=== PATIENT | female | born 1995 | race Caucasian/White ===

== ENCOUNTER 2017-11-29 15:47 | Emergency (ER) | payer MEDICAID, SELFPAY ==
[2017-11-29 16:01] VITALS: BP 142/84; PULSE 98; RESP 20; TEMP 36.8; O2SAT 94; BMI 27.4
--- NOTE | 2017-11-29 16:12 | HMH.EDUTC ---
[facility] [place] Disposition Clinical Impression: URI (upper respiratory infection) Qualifiers: URI type: unspecified URI Qualified Code(s): J06.9 - Acute upper respiratory infection, unspecified Disposition: Home, Self-Care Condition on Discharge: Good Instructions: DI for Cough -- Adult, Sinusitis, Sore Throat Additional Instructions: * Monitor Temp. Tylenol and/or Ibuprofen as needed. ER if fever is no less than 101 despite alternating Tylenol and Ibuprofen * Encourage fluids, water, Gatorade, powerade, pedialyte if /toddler/or child * Warm salt water gargles for throat irritation *Warm fluids *Sore throat lozenges *Sleep elevated *humidifier or vaporizer Lots of rest Increase fluids, water, Gatorade, powerade *Flonase 2 sprays each nostril daily but may take 2-3 days to notice improvement with it *Bromfed may cause drowsiness. Know how it effect you or your child. Before driving, caring for small children or sending your child to school *Your throat swab was sent to lab for culture. Those results area typically sent to your primary care physician. Be sure to follow up in 2-3 days if no improvement so they can review those results and treat if necessary If you dont have primary care I recommend you get one, but in the mean time you will have to return to a walk in clinic Follow up IMMEDIATELY for new or worsening of symptoms OR no noticeable improvement over the next 48-72 hours. 911 immediately for any life threatening symptoms such as chest pain or difficulty breathing Prescriptions: Brompheniramine/Pseudoephed/Dm [Bromfed DM Cough Syrup 5mL] 10 ml PO Q4HP PRN #350 ml PRN Reason: Cough Albuterol Sulfate [Albuterol HFA Inhaler] 2 puffs IH Q6HP PRN #1 inh PRN Reason: Shortness Of Breath Or Wheezing Azithromycin [Z-Clark 250mg Tab] 250 mg PO UD DOSE PK #6 tab Fluticasone Propionate [Flonase 50mcg nasal spray 16gm] 2 spr NS DAILY #1 bottle predniSONE [Prednisone 20mg Tab] 20 mg PO BID #10 tab Referrals: [place] MD [Primary Care Provider] - Time of Disposition: 16:28 Medical Decision Making - Medical Records Medical records reviewed: Yes: I reviewed the patient's medical records. - Calderon Inquiry Pt receiving controlled substance: No Calderon was queried for this patient: No Vital Signs: 11/29/17 16:01 Temperature 98.2 F Temperature Source Temporal Artery Scan Pulse Rate [Right Brachial] 98 H Respiratory Rate 20 Blood Pressure [Right Arm] 142/84 Blood Pressure Mean [Right Arm] 103 Blood Pressure Source [Right Arm] Automatic Cuff Blood Pressure Position [Right Arm] Sitting 02 Sat by Pulse Oximetry 94 L Oxygen Delivery Method Room Air [facility] HPI - General Stated complaint: cough,stuffy nose Time Seen by Provider: 11/29/17 16:15 Mode of Arrival: Family Vehicle Source of Information: Patient Limitations: No Limitations Description of Symptoms (Recalled from Triage Doc. by RN): C/O SORE THROAT,COUGH AND SINUS DRAINAGE X 3 DAYS HEENT Symptoms (Recalled from RN notes): Yes Resp Symptoms (Recalled from RN notes): Yes Skin Symptoms (Recalled from RN notes): No MS Symptoms (Recalled from RN notes): No Functional Status (Recalled from RN notes): N/A - History of Present Illness Provider Complaint: Patient state that she has been having sore throat, cough, chest congestion and sinus pressure State that it has continued to get worse State that she feels like her sinuses are draining down the back of her throat State that she has been coughing alot and was worried that this may get worse so she came in to get checked out - Related Data Home Medications Medication Instructions Recorded Confirmed Fluticasone Propionate [Flonase 1 spr NS BID 11/29/17 11/29/17 50mcg nasal spray 16gm] Levocetirizine Dihydrochloride 5 mg PO DIRECTED 11/29/17 11/29/17 [Xyzal] Montelukast Sodium [Singulair] 10 mg PO DAILY 11/29/17 11/29/17 Previous Rx's Medication Instructions Recorded Albuterol Sulfa
--- NOTE | 2017-11-29 16:23 | ED_ITS ---
[facility] [place] Disposition Clinical Impression: URI (upper respiratory infection) Qualifiers: URI type: unspecified URI Qualified Code(s): J06.9 - Acute upper respiratory infection, unspecified Disposition: Home, Self-Care Condition on Discharge: Good Instructions: DI for Cough -- Adult, Sinusitis, Sore Throat Additional Instructions: * Monitor Temp. Tylenol and/or Ibuprofen as needed. ER if fever is no less than 101 despite alternating Tylenol and Ibuprofen * Encourage fluids, water, Gatorade, powerade, pedialyte if infant/toddler/or child * Warm salt water gargles for throat irritation *Warm fluids *Sore throat lozenges *Sleep elevated *humidifier or vaporizer Lots of rest Increase fluids, water, Gatorade, powerade *Flonase 2 sprays each nostril daily but may take 2-3 days to notice improvement with it *Bromfed may cause drowsiness. Know how it effect you or your child. Before driving, caring for small children or sending your child to school *Your throat swab was sent to lab for culture. Those results area typically sent to your primary care physician. Be sure to follow up in 2-3 days if no improvement so they can review those results and treat if necessary If you don? t have primary care I recommend you get one, but in the mean time you will have to return to a walk in clinic Follow up IMMEDIATELY for new or worsening of symptoms OR no noticeable improvement over the next 48-72 hours. 911 immediately for any life threatening symptoms such as chest pain or difficulty breathing Prescriptions: Brompheniramine/Pseudoephed/Dm [Bromfed DM Cough Syrup 5mL] 10 ml PO Q4HP PRN # 350 ml PRN Reason: Cough Albuterol Sulfate [Albuterol HFA Inhaler] 2 puffs IH Q6HP PRN #1 inh PRN Reason: Shortness Of Breath Or Wheezing Azithromycin [Z-Clark 250mg Tab] 250 mg PO UD DOSE PK #6 tab Fluticasone Propionate [Flonase 50mcg nasal spray 16gm] 2 spr NS DAILY #1 bottle predniSONE [Prednisone 20mg Tab] 20 mg PO BID #10 tab Referrals: [place] MD [Primary Care Provider] - Time of Disposition: 16:28 Medical Decision Making - Medical Records Medical records reviewed: Yes: I reviewed the patient's medical records. - Calderon Inquiry Pt receiving controlled substance: No Calderon was queried for this patient: No Vital Signs: 11/29/17 16:01 Temperature 98.2 F Temperature Source Temporal Artery Scan Pulse Rate [Right Brachial] 98 H Respiratory Rate 20 Blood Pressure [Right Arm] 142/84 Blood Pressure Mean [Right Arm] 103 Blood Pressure Source [Right Arm] Automatic Cuff Blood Pressure Position [Right Arm] Sitting 02 Sat by Pulse Oximetry 94 L Oxygen Delivery Method Room Air [facility] [place] HPI - General Stated complaint: cough,stuffy nose Time Seen by Provider: 11/29/17 16:15 Mode of Arrival: Family Vehicle Source of Information: Patient Limitations: No Limitations Description of Symptoms (Recalled from Triage Doc. by RN): C/O SORE THROAT, COUGH AND SINUS DRAINAGE X 3 DAYS HEENT Symptoms (Recalled from RN notes): Yes Resp Symptoms (Recalled from RN notes): Yes Skin Symptoms (Recalled from RN notes): No MS Symptoms (Recalled from RN notes): No Functional Status (Recalled from RN notes): N/A - History of Present Illness Provider Complaint: Patient state that she has been having sore throat, cough, chest congestion and sinus pressure State that it has continued to get worse State that she feels like her sinuses are draining down the back of her throat State that she has been coughing
[2017-11-29 16:28] LABS: UTC Strep Screen (Rapid) Negative (Negative)
[2017-11-29 16:32] VITALS: BP 132/72; PULSE 90; RESP 20; TEMP 36.8; O2SAT 95
== END 2017-11-29 16:33 | disposition home or self-care (01) ==
PROVIDERS: Emergency Provider Nurse Practitioner; Family Provider Internal Medicine Adolescent Medicine; PCP Internal Medicine Adolescent Medicine
DX: J06.9 Acute upper respiratory infection, unspecified (principal)
CPT/HCPCS: 87880; 99201

== ENCOUNTER 2019-08-10 14:30 | Outpatient (RCR) | payer MEDICARE, BC, SELFPAY | END 2019-08-10 14:35 | disposition home or self-care (01) | LOC: PT 14:30 | PROVIDERS: PCP Internal Medicine Adolescent Medicine; Visit Provider Nurse Practitioner Pediatrics | DX: Q27.9 Congenital malformation of peripheral vascular system, unspecified (principal) | CPT/HCPCS: 97010; 97014; 97035; 97110; 97140; 97163; G0283 ==

== ENCOUNTER 2020-11-01 19:44 | Emergency (ER) | payer MEDICARE, BC, SELFPAY ==
[2020-11-01 20:09] VITALS: BP 140/92; PULSE 100; RESP 14; TEMP 38.2; O2SAT 99; BMI 27.4
--- NOTE | 2020-11-01 20:13 | HMH.EDUTC ---
[facility] [place] Disposition Clinical Impression: Encounter for laboratory testing for COVID-19 virus Sinusitis Qualifiers: Sinusitis location: unspecified location Chronicity: unspecified Qualified Code(s): J32.9 - Chronic sinusitis, unspecified Disposition: Home, Self-Care Condition on Discharge: Good Instructions: DI for Fever (Symptom) -- Adult, Sore Throat, DI for Sinusitis Additional Instructions: *Monitor Temp, Over the counter Motrin or Tylenol as directed/as needed Tylenol every 4 hours and Motrin every 6 hours (as long as your family doctor has told you that you can take it) for fever or pain. and straight to ER if unable to lower temp less than 101.0 after medication given *Warm salt water gargles may help to soothe the throat *Throat Lozenges *Warm fluids like tea with honey may help to soothe the throat *Sleep elevated *Humidifier/Vaporizer Your throat swab was sent for culture. Those results are typically sent to your primary care. Be sure to follow up in 2-3 days with your family doctor/primary care physician if no improvement so they can review those result and treat if necessary. If you don?t have a primary care doctor, I recommend you get one but in the mean time, you will have to return to a walk in clinic Follow up IMMEDIATELY for new or worsening symptoms or no Noticeable improvement over the next 48-72 hours. 911 for difficulty breathing or swallowing You were tested for today for COVID19 your test result should be back in the next 24-48 hours, you may call to the [facility] to see if your test results are back in the next 48 hours [phone] [facility] hours are 9am-9pm You was given a handout with instructions for Self Quarantine and Self isolation for while you wait on test results and what to do if they are positive If you are positive the Health Dept will be contacting you also Prescriptions: Fluticasone Propionate [Flonase 50mcg nasal spray 16gm] 1 spr NS DAILY #1 bottle Transmission Status: Pending to [facility] # Azithromycin [Z-Clark 250mg Tab] 250 mg PO DIRECTED #6 tab Transmission Status: Pending to [facility] # Referrals: [place] MD [Primary Care Provider] - As needed Forms: Work/School Release Time of Disposition: 20:19 Medical Decision Making - Calderon Inquiry Pt receiving controlled substance: No Calderon was queried for this patient: No Vital Signs: 11/01/20 20:09 Temperature 100.7 F H Temperature Source Oral Pulse Rate [Right] 100 H Respiratory Rate 14 Blood Pressure [Right Arm] 140/92 H Blood Pressure Mean [Right Arm] 108 Blood Pressure Source [Right Arm] Automatic Cuff Blood Pressure Position [Right Arm] Sitting 02 Sat by Pulse Oximetry 99 Oxygen Delivery Method Room Air - Lab Data Lab results reviewed: Yes: I reviewed the patient's lab results. Medical Decision Narrative: Patient states that she has taken azithromycin before without complications or reactions [facility] [place] HPI - General Stated complaint: sore throat,body pain Time Seen by Provider: 11/01/20 20:13 Mode of Arrival: Ambulatory Source of Information: Patient Limitations: No Limitations Description of Symptoms (Recalled from Triage Doc. by RN): pt is having a sore throat, cough, body aches, fever, and sinus pressure. HEENT Symptoms (Recalled from RN notes): Yes (sore throat and sinus pressure) Resp Symptoms (Recalled from RN notes): Yes (cough) Skin Symptoms (Recalled from RN notes): No MS Symptoms (Recalled from RN notes): Yes (body aches) Functional Status (Recalled from RN notes): na - History of Present Illness Provider Complaint: Patient states that she hasnt been feeling well for several days and thought it was just her allergies State that she has been having sinus pain and pressure, sore throat, fever body aches and chills States that her ears feel full States that she spoke with her mother after she started having fever and she told her she needed to come in and get checked
[2020-11-01 20:23] VITALS: BP 136/95; PULSE 101; RESP 14; TEMP 37.7
[2020-11-01 20:54] LABS: UTC Strep Screen (Rapid) Negative (Negative)
[2020-11-01 20:55] LABS: UTC Influenza A Antigen Negative (Negative); UTC Influenza B Antigen Negative (Negative)
== END 2020-11-01 20:26 | disposition home or self-care (01) ==
PROVIDERS: Emergency Provider Nurse Practitioner; PCP Internal Medicine Adolescent Medicine
DX: Z20.822 Contact with and (suspected) exposure to COVID-19 (principal); J32.9 Chronic sinusitis, unspecified; F17.210 Nicotine dependence, cigarettes, uncomplicated
CPT/HCPCS: G0463; 87804; 87880; 99202; U0003

== ENCOUNTER 2021-06-18 23:53 | Emergency (ER) | payer MEDICARE, BC, SELFPAY ==
[2021-06-18 23:54] VITALS: BP 108/78; PULSE 101; RESP 18; TEMP 36.7; O2SAT 99; BMI 29.1
[2021-06-19 00:21] VITALS: BP 108/78; PULSE 96; O2SAT 99
[2021-06-19 00:31] VITALS: BP 139/91; PULSE 99; O2SAT 99
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
[2021-06-19 00:57] VITALS: BP 105/74; PULSE 80; RESP 18; TEMP 36.7; O2SAT 99
== END 2021-06-19 00:57 | disposition home or self-care (01) ==
PROVIDERS: Emergency Provider Emergency Medicine
DX: T24.212A Burn of second degree of left thigh, initial encounter (principal); T25.221A Burn of second degree of right foot, initial encounter; X17.XXXA Contact with hot engines, machinery and tools, initial encounter; Y92.010 Kitchen of single-family (private) house as the place of occurrence of the external cause; F17.210 Nicotine dependence, cigarettes, uncomplicated; J45.909 Unspecified asthma, uncomplicated
CPT/HCPCS: 99281

== ENCOUNTER 2022-12-12 16:35 | Emergency (ER) | payer MEDICARE, BC, SELFPAY ==
[2022-12-12 16:38] VITALS: BP 146/64; PULSE 115; RESP 18; TEMP 36.7; O2SAT 96; BMI 29.4
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
[2022-12-12 17:00] VITALS: BP 146/64; PULSE 98; RESP 18; TEMP 36.7; O2SAT 96
== END 2022-12-12 17:01 | disposition home or self-care (01) ==
LOC: ER 17:11
PROVIDERS: Emergency Provider Emergency Medicine; PCP Nurse Practitioner Family
DX: R22.41 Localized swelling, mass and lump, right lower limb (principal); L76.82 Other postprocedural complications of skin and subcutaneous tissue; F17.210 Nicotine dependence, cigarettes, uncomplicated
CPT/HCPCS: 99282; 99283